=== PATIENT | male | born 1975 | race Two or more races ===

== ENCOUNTER 2024-06-03 06:10 | Emergency (ER) | payer OTHER ==
[~2024-06-03] VITALS: Ht 193 cm; Wt 117.9 kg
[~2024-06-03 06:10] MED LIST: CEPHALEXIN500 MG PO
[2024-06-03] MEDS ORDERED: hydrOXYzine PAMOATE 50 MG CAPSULE PO STA (08:34)
[2024-06-03] MEDS ORDERED: hydrOXYzine PAMOATE 50 MG CAPSULE PO ONE (08:42)
[2024-06-03 08:52] LABS: HEMATOCRIT 46.6 % (39.0-48.0); HEMOGLOBIN 16.3 g/dL (13-16.00); MEAN CELL VOLUME 95.9 fL (80.0-100.00); MEAN CORPUSCULAR HEMOGLOBIN 33.6 pg (27.00-32.0); PLATELET COUNT 249 K/uL (150-450); RED BLOOD COUNT 4.87 M/uL (4.00-6.00)
[2024-06-03 08:58] LABS: URINE APPEARANCE Clear; URINE BILIRRUBIN Negative (NEGATIVE); URINE BLOOD Negative; URINE COLOR Yellow; URINE GLUCOSE Negative (NEGATIVE); URINE LEUKOCYTE Negative; URINE NITRATE Negative; URINE PROTEIN Negative (NEGATIVE); URINE UROBILINOGEN 0.2 E.U./dl
[2024-06-03 09:11] LABS: ALBUMIN 4.1 gm/dL (3.4-5.0); BILIRUBIN TOTAL 2.03 mg/dL (0.3-1.2); CALCIUM 9.5 mg/dL (8.5-10.1); CREATININE SERUM 1.1 mg/dL (0.70-1.30); GFR 71.45; GLOBULINA 4.2 G/DL (2.4-3.5); TOTAL PROTEIN 8.3 gm/dL (6.4-8.2)
[2024-06-03 09:15] LABS: URINE BACTERIA 0 uL (0.0-1933); URINE RBC 0.3 uL (0.0-20.8); URINE WBC 0.7 uL (0.0-23.2)
== END 2024-06-03 13:56 | disposition home or self-care (01) ==
LOC: ER 06:10
PROVIDERS: General Practice
DX: R00.2 Palpitations (principal)